=== PATIENT | male | born 1975 ===

== ENCOUNTER 2017-08-21 21:37 | Emergency (ER) | payer SELFPAY ==
[2017-08-21 21:43] VITALS: TEMP 98.1
--- NOTE | 2017-08-21 22:11 | ED PDOC ---
HPI: Psych/Substance Abuse Time Seen by Provider: 08/21/17 21:44 Chief Complaint (Nursing): Alcohol Ingestion History Per: EMS History/Exam Limitations: intoxication Additional Complaint(s): Pt. brought in by EMS on the ground in front of a liquor store. Pt. admits to drinking beer. Denies fall, trauma, headache, chest pain, SOB, abdominal pain. Pt. requesting food. Past Medical History Reviewed: Historical Data, Nursing Documentation, Vital Signs Vital Signs: Last Vital Signs Temp 98.1 F 08/21/17 21:38 Pulse 116 H 08/21/17 21:38 Resp 18 08/21/17 21:38 BP 154/111 H 08/21/17 21:38 Pulse Ox 94 L 08/21/17 21:38 - Family History Family History: States: Unknown Family Hx - Allergies Allergies/Adverse Reactions: Allergies Allergy/AdvReac Type Severity Reaction Status Date / Time No Known Allergies Allergy Verified 08/21/17 21:43 Review of Systems Review Of Systems: ROS cannot be obtained secondary to pt's inabilty to answer questions. Physical Exam - Reviewed Nursing Documentation Reviewed: Yes Vital Signs Reviewed: Yes - Physical Exam Appears: Positive for: Well, Non-toxic, No Acute Distress Head Exam: Negative for: ATRAUMATIC, NORMAL INSPECTION, NORMOCEPHALIC Skin: Positive for: Normal Color, Warm. Negative for: Rash Eye Exam: Positive for: EOMI, Normal appearance, PERRL ENT: Positive for: Normal ENT Inspection, TM Is/Are (no hemotympanum b/l), Other (dry blood noted on both nostrils) Neck: Positive for: Normal, Painless ROM Cardiovascular/Chest: Positive for: Regular Rate, Rhythm, Chest Non Tender, Other (no flail chest) Respiratory: Positive for: CNT, Normal Breath Sounds Gastrointestinal/Abdominal: Positive for: Normal Exam, Bowel Sounds, Soft, Other (ecchymosis without tenderness on RUQ). Negative for: Tenderness Back: Positive for: Normal Inspection. Negative for: L CVA Tenderness, R CVA Tenderness, Vertebral Tenderness (including cervical spine) Extremity: Positive for: Normal ROM Neurologic/Psych: Positive for: Alert, Oriented (x4), Other (AOB; slurred speech ). Negative for: Aphasia, Facial Droop - Laboratory Results Result Diagrams: 08/21/17 23:05 08/21/17 23:05 - ECG O2 Sat by Pulse Oximetry: 94 - Radiology X-Ray: Interpreted by Me (CXR) - Progress ED Course And Treament: Labs ordered. CT head, cervical spine, maxillofacial w/o contrast, CT abd/pelvis /chest w/ IV contrast, EKG ordered. Disposition - Clinical Impression Clinical Impression: Abdominal trauma, Fall, Head injury, Alcohol intoxication - Patient ED Disposition Is Patient to be Admitted: Transfer of Care (Signed out to Alexandra LOGAN pending CT results and final disposition) - Disposition Disposition Time: 00:00 Condition: STABLE Forms: [employer] ([place])
[2017-08-21 23:16] LABS: BASO % 0.8 % (0.0-2.0); EOS % 0.9 % (0.0-4.0); HEMOGLOBIN 11.8 g/dL (12.0-18.0); LYMPH # 1.1 K/uL (1.0-4.3); MEAN CELL VOLUME 83.1 fl (80.0-94.0); MEAN CORPUSCULAR HGB CONC 32.5 g/dL (33.0-37.0); MEAN PLATELET VOLUME 8.6 fl (7.2-11.7); MONO # 0.2 K/uL (0.0-0.8); MONO % 6.8 % (0.0-10.0); NEUT # 1.9 K/uL (1.8-7.0); NEUT % 57.5 % (50.0-75.0); NRBC % 0.1 % (0.0-0.0); RBC 4.37 Mil/uL (4.40-5.90); RED CELL DISTRIBUTION WIDTH 18.3 % (11.5-14.5); WHITE BLOOD COUNT 3.2 K/uL (4.8-10.8)
[2017-08-21] MEDS ORDERED: Iohexol 300 100 ML IJ ONE (23:38)
[2017-08-21] MEDS ORDERED: Sodium Chloride 0.9% 50 ML IV ONE (23:39)
[2017-08-21 23:54] LABS: ALBUMIN 4.4 g/dL (3.5-5.0); ALT/SGPT 57 U/L (21-72); AST/SGOT 114 U/L (17-59); BLOOD UREA NITROGEN 7 mg/dl (9-20); CALCIUM 8.2 mg/dL (8.4-10.2); GFR AFRICAN-AMERICAN > 60; GFR NON-AFRICAN AMERICAN > 60
[2017-08-21 23:58] LABS: INR 1.1 (0.9-1.2); PARTIAL THROMBOPLASTIN TIME 35.7 Seconds (25.6-37.1); PROTHROMBIN TIME 12.2 Seconds (9.8-13.1)
--- NOTE | 2017-08-22 | ED PDOC ---
- Laboratory Results Result Diagrams: 08/21/17 23:05 08/21/17 23:05 - ECG O2 Sat by Pulse Oximetry: 94 <Amy Morris - Last Filed: 08/22/17 05:47> - Laboratory Results Result Diagrams: 08/21/17 23:05 08/21/17 23:05 <Pravin Powell - Last Filed: 08/22/17 07:04> Medical Decision Making <Amy Morris - Last Filed: 08/22/17 05:47> <Pravin Powell - Last Filed: 08/22/17 07:04> Medical Decision Making: Case was signed out to filing writer from [facility] Giraldo pending CT results, re- evaluation and final disposition. CT cervical spine: no acute finding CT head: FINDINGS: Brain: Unremarkable. No hemorrhage. No significant white matter disease. No edema. Ventricles: Unremarkable. No ventriculomegaly. Bones/joints: Slightly offset fractures of nasal bones. Soft tissues: Unremarkable. Sinuses: Minimal left maxillary and ethmoid sinus mucosal thickening. Mastoid air cells: Unremarkable as visualized. No mastoid effusion. IMPRESSION: 1. Slightly offset fractures of the nasal bones. 2. Minimal left maxillary and ethmoid sinus disease. 3. Otherwise negative noncontrast head CT CT facial bones: FINDINGS: Bones/joints: Slightly displaced fractures of the nasal bones. Soft tissues: Slight soft tissue swelling of the nose. Orbits: Unremarkable. Sinuses: Bilateral maxillary sinus mucosal thickening, left greater than right. Minimal ethmoid sinus mucosal thickening. No air-fluid levels. Auditory system: Debris in the right external auditory canal. Dental: Prominent periodontal disease of teeth #31 and #16. There is suggestion of erosion into the left maxillary sinus. Other findings: Debris or packing in the nares. IMPRESSION: 1. Slightly displaced fractures of the nasal bones with slight nasal soft tissue swelling. There is packing within the nares. 2. Prominent periodontal disease of teeth #16 and 31. 3. Bilateral maxillary and ethmoid sinus disease. The left maxillary sinus disease may have an odontogenic origin CT chest, abd and pelvis with IV contrast: Fatty liver, no post-traumatic changes. 12:30 am: Patient is sleeping, vital signs stable 2:30 am: Patient is sleeping, vital signs stable 4:30 am: Vital signs are stable, vital signs stable 6:00 am: Patient still intoxicated, arousable, vital signs stable. (Amy Morris) Time:6:30 Patient is alert, oriented, awake, and has stable gait. Patient was diagnosed with alcohol and nasal fracture. (Pravin Powell) Disposition - POA Present On Arrival: None - Disposition Disposition: Transfer of Care Disposition Time: 06:00 Patient Signed Over To: Pravin Powell Handoff Comments: Signed out pending sobriety and final disposition <Amy Morris - Last Filed: 08/22/17 05:47> <Pravin Powell - Last Filed: 08/22/17 07:04> - Clinical Impression Clinical Impression: Abdominal trauma, Fall, Head injury, Alcohol intoxication, Nasal fracture - Disposition Condition: STABLE Instructions: Nasal Fracture (ED), Alcohol Intoxication (ED) Forms: [employer] (L[place])
[2017-08-22 00:10] LABS: BARBITURATES, UR NEGATIVE (NEGATIVE); BENZODIAZEPINES, UR NEGATIVE (NEGATIVE); OPIATES, UR NEGATIVE (NEGATIVE)
[2017-08-22 00:31] LABS: PHENCYCLIDINE, UR NEGATIVE (NEGATIVE)
[2017-08-22 00:53] VITALS: PULSE 103
[2017-08-22 06:31] VITALS: BP 155/84; RESP 14; O2SAT 98
--- NOTE | 2017-08-22 09:25 | RAD ---
HISTORY: fall COMPARISON: No prior. FINDINGS: LUNGS: Poor inspiration with low lung volumes, crowded bronchovascular markings and mild bibasilar atelectasis. PLEURA: No significant pleural effusion identified, no pneumothorax apparent. CARDIOVASCULAR: Heart appears borderline/ mildly enlarged. OSSEOUS STRUCTURES: No significant abnormalities. VISUALIZED UPPER ABDOMEN: Normal. OTHER FINDINGS: None. IMPRESSION: Poor inspiration with low lung volumes, crowded bronchovascular markings and mild bibasilar atelectasis.
--- NOTE | 2017-08-22 10:10 | CT ---
PROCEDURE: CT HEAD WITHOUT CONTRAST. HISTORY: trauma COMPARISON: Comparison made with concurrent CT scan maxillofacial skeleton TECHNIQUE: Axial computed tomography images were obtained through the head/brain without intravenous contrast. Radiation dose: Total exam DLP = 1453.56 mGy-cm. This CT exam was performed using one or more of the following dose reduction techniques: Automated exposure control, adjustment of the mA and/or kV according to patient size, and/or use of iterative reconstruction technique. FINDINGS: HEMORRHAGE: No intracranial hemorrhage. BRAIN: No mass effect or edema. No atrophy or chronic microvascular ischemic changes. VENTRICLES: Unremarkable. No hydrocephalus. CALVARIUM: There are no acute calvarial fractures. PARANASAL SINUSES: Minor mucosal thickening left maxillary antrum es. Bilateral nasal bone fracture deformities and fracture -right word deviation of the nasal septum MASTOID AIR CELLS: Unremarkable as visualized. No inflammatory changes. OTHER FINDINGS: None. IMPRESSION: No acute intracranial hemorrhage. Bilateral nasal bone fractures with overlying soft tissue swelling. Fracture deviation of nasal septum.
--- NOTE | 2017-08-22 12:08 | CT ---
PROCEDURE: CT MAXILLOFACIAL BONES WITHOUT CONTRAST HISTORY: Trauma COMPARISON: Comparison made with concurrent CT scan brain 08/21/2017 TECHNIQUE: Contiguous axial CT images of the maxillofacial bones were obtained. Coronal and sagittal reformats were generated. Radiation dose: Total exam DLP = 788.29 mGy-cm. This CT exam was performed using one or more of the following dose reduction techniques: Automated exposure control, adjustment of the mA and/or kV according to patient size, and/or use of iterative reconstruction technique. FINDINGS: NASAL BONES: The current study reveals mildly displaced bilateral nasal bone fractures with fracture and rightward deviation of the at anterior aspect of the nasal septum. There is mild overlying soft tissue swelling. . ORBITS: Unremarkable. PARANASAL SINUSES/ MASTOIDS: Mild to moderate mucosal thickening left maxillary antrum with minor mucosal thickening right maxillary antrum. Minor mucosal thickening also noted within a few ethmoid air cells. MAXILLA: Unremarkable. MANDIBLE/ TEMPOROMANDIBULAR JOINTS: Unremarkable. SKULL BASE: Unremarkable. TEMPORAL BONES: Middle ears and mastoid grossly unremarkable. OTHER FINDINGS: Note made of large radicular cyst involving the right-sided last maxillary molar which is associated with a defect in the lingual surface of the body of the mandible. . Additionally, there is also a radicular cyst surrounding the roots of the left-sided last maxillary molar which appears to have broken through an extended into the floor of the posterior aspect floor left maxillary antrum. IMPRESSION: There are mildly displaced bilateral nasal bone fractures with fracture and rightward deviation of the anterior nasal septum. Overlying soft tissue swelling. Radicular cystic changes involving the at aforementioned maxillary and mandibular molars as detailed above. Note preliminary report was provided by overnight radiology service
--- NOTE | 2017-08-22 12:18 | CT ---
PROCEDURE: CT Cervical Spine without contrast HISTORY: Trauma COMPARISON: No prior study available for comparison TECHNIQUE: Axial computed tomography images were obtained of the cervical spine without the use of intravenous contrast. Coronal and sagittal reformatted images were created and reviewed. Radiation dose: Total exam DLP = 629.37 mGy-cm. This CT exam was performed using one or more of the following dose reduction techniques: Automated exposure control, adjustment of the mA and/or kV according to patient size, and/or use of iterative reconstruction technique. FINDINGS: VERTEBRAE: No fracture. Normal alignment. No destructive bony lesion. DISCS/SPINAL CANAL/NEURAL FORAMINA: Mild posterior disc space narrowing seen at several levels. . At the C3-C4 level, there is a small central and bilateral disc protrusion indents the ventral surface of the thecal sac and appears to reach and possibly minimally flatten the ventral surface of the spinal cord. Central canal and exit foramina adequate at this level. . Small central and bilateral disc bulge indents the ventral surface of the thecal sac at the C5-C6 and to a lesser degree C4-C5 levels. Overall central canal and exit foramina appear adequate. PARASPINAL SOFT TISSUES: Unremarkable. OTHER FINDINGS: Minimal linear scarring of both lung apices. IMPRESSION: No evidence of acute displaced nor compression fracture deformities. . Mild disc bulging changes most notably at the C3-C4 level as detailed above.
--- NOTE | 2017-08-22 16:14 | CT ---
PROCEDURE: CT Chest, Abdomen and Pelvis with intravenous contrast HISTORY: Trauma COMPARISON: No prior study available for comparison TECHNIQUE: Contiguous helical/transaxial sections of the chest and pelvis performed following IV contrast injection. IV dose administered: 95 cc Omnipaque 300 contrast material. Radiation dose: Total exam DLP = 1313.48 mGy-cm. This CT exam was performed using one or more of the following dose reduction techniques: Automated exposure control, adjustment of the mA and/or kV according to patient size, and/or use of iterative reconstruction technique. FINDINGS: CT CHEST WITH CONTRAST: LUNGS: There are mild atelectatic and/or scarring changes both lung bases left greater than right. No evidence of focal consolidation or effusion. MEDIASTINUM: Heart size within range of normal. No evidence of significant pericardial effusion. No evidence of thoracic aortic aneurysm or dissection. The central airways are midline and patent. No large central endoluminal lesion. Air is seen intermittently throughout the esophagus. There is a small hiatal hernia with wall thickening of the distal esophagus likely due to protrusion of gastric mucosa. Possibility of esophagitis not excluded. LYMPH NODES: No significant mediastinal or hilar adenopathy. PLEURA: Unremarkable. No pneumothorax. No pleural fluid. BONES: Osseous structures appear intact. No evidence of fractures of the thoracic spine or visualized ribs. Mild multilevel degenerative spondylosis of the thoracic spine. OTHER FINDINGS: None. CT ABDOMEN AND PELVIS: LIVER: The liver is enlarged measuring nearly 20 cm in CC dimension. Moderate to fairly significant diffuse fatty hepatic infiltration. No obvious hepatic mass collection or calcification. No evidence of posttraumatic sequela GALLBLADDER AND BILE DUCTS: Unremarkable. PANCREAS: Unremarkable. No gross lesion or ductal dilatation. SPLEEN: Spleen is mildly enlarged measuring approximately 13 cm in AP dimension. No splenic mass collection or calcification. No evidence of a posttraumatic sequela ADRENALS: Mild asymmetry of the adrenal glands left-sided which is slightly more prominent than the right. KIDNEYS AND URETERS: Kidneys demonstrate symmetric nephrograms. No evidence of nephrolithiasis or hydronephrosis. No evidence of posttraumatic sequela including infarct. VASCULATURE: Unremarkable. No aortic aneurysm. BOWEL: Evaluation of the bowel is somewhat limited due to the lack of oral contrast material. Stomach is underdistended which presumably accounts for thick-walled appearance. Gastritis or other intrinsic/invasive wall lesion not excluded. Visualized loops of small bowel exhibit normal contour and caliber. No evidence of acute mechanical small bowel obstruction. Stool and air seen throughout the large bowel. No definitive mural wall thickening. APPENDIX: Normal-appearing appendix best seen on axial image number [id number] PERITONEUM: Unremarkable. No free fluid. No free air. LYMPH NODES: Unremarkable. No enlarged lymph nodes. BLADDER: The ureter urinary bladder is physiologically markedly distended. No evidence of intraluminal urinary bladder calculi. REPRODUCTIVE: Prostate gland measures approximately 4.8 cm in transverse dimension. Prostatic calcifications are present. BONES: The osseous structures appear intact. No acute compression fractures no retropulsed fragments. Pelvis is intact as well. Mild degenerative spondylosis of the lumbar spine OTHER FINDINGS: None. IMPRESSION: No evidence of acute posttraumatic sequela. Bibasilar atelectasis and or scarring left greater than right. Hepatomegaly with moderate to significant fatty hepatic infiltration. Mild splenomegaly. Marked urinary bladder distention. Small hiatal hernia with wall thickening of the distal esophagus. See above discussion for additional details and findings. Preliminary report provided by overnight radiology service
--- NOTE | 2017-08-23 12:56 | CARD ---
APPROVED REPORT EKG Measurement Heart [id number] [place] [id number] <Conclusion> Sinus tachycardia Otherwise normal ECG
== END 2017-08-22 07:10 | disposition home or self-care (01) ==
LOC: H.ER 21:37
DX: F10.129 Alcohol abuse with intoxication, unspecified (principal); S02.2XXA Fracture of nasal bones, initial encounter for closed fracture; S39.91XA Unspecified injury of abdomen, initial encounter; Y92.89 Other specified places as the place of occurrence of the external cause
CPT/HCPCS: 70450; 70486; 71045; 71260; 72125; 74177; 80053; 85025; 85610; 85730; 86850; 86900; 93005; 99283; G0480; Q9967